=== PATIENT | female | born 1955 | race Caucasian/White ===

== ENCOUNTER 2017-03-24 14:43 | Emergency (ER) | payer SELFPAY ==
[~2017-03-24] VITALS: Ht 172.7 cm; Wt 67.1 kg
[2017-03-24] MEDS ORDERED: HALOPERIDOL LACTATE INJ 5 MG/ML VIAL ONE (14:44)
[2017-03-24] MEDS ORDERED: diphenhydrAMINE HCL 50 MG/ML VIAL ONE (14:44)
[2017-03-24] MEDS ORDERED: LORAZEPAM INJ 2 MG/ML VIAL ONE (14:44)
--- NOTE | 2017-03-24 14:55 | NUR ---
PT BIB [facility] C/O BIZARRE BEHAVIOR, SCREAMING OBSCENITIES, SPITTING. UNCOOPERATIVE WITH STAFF INSTRUCTIONS. RESP EVEN UNLABORED. PLACED ON 4 POINT RESTRAINTS FOR PT AND STAFF SAFETY. IN ER BED 15 ON MONITOR.
[2017-03-24] MEDS: diphenhydrAMINE HCL 50 MG/ML VIAL IM ONE (14:58)
[2017-03-24] MEDS: LORAZEPAM INJ 2 MG/ML VIAL IM ONE (15:02)
[2017-03-24] MEDS: HALOPERIDOL LACTATE INJ 5 MG/ML VIAL IM ONE (15:02)
[2017-03-24 15:07] LABS: BASOPHILS % (AUTO) 0.7 % (0.0-2.0); EOSINOPHILS % (AUTO) 0.6 % (0.0-6.0); HEMATOCRIT 40 % (33-45); HEMOGLOBIN 13.5 g/dL (11.5-14.8); LYMPHOCYTES # (AUTO) 2.6 /CMM (0.8-4.8); LYMPHOCYTES % (AUTO) 36.7 % (20.0-44.0); MEAN CORPUSCULAR HEMOGLOBIN 29 PG (26.0-33.0); MEAN CORPUSCULAR HGB CONC 34 g/dl (31.0-36.0); MEAN CORPUSCULAR VOLUME 84 fL (82-100); MONOCYTES # (AUTO) 0.4 /CMM (0.1-1.30); MONOCYTES % (AUTO) 5.1 % (2.0-12.0); NEUTROPHILS # (AUTO) 4.1 /CMM (1.8-8.9); NEUTROPHILS % (AUTO) 56.9 % (43.0-81.0); PLATELET COUNT (AUTO) 259 /CMM (150-450); RDW COEFFICIENT OF VARIATION 12.6 (11.5-15.0); WHITE BLOOD COUNT (AUTO) 7.1 K/uL (4.3-11.0)
[2017-03-24 15:22] LABS: CALCIUM, SERUM 8.1 mg/dL (8.5-10.1); CREATININE 0.7 mg/dL (0.6-1.3); POTASSIUM 3.9 mmol/L (3.5-5.1)
[2017-03-24 15:27] LABS: ALBUMIN 3.6 g/dL (3.4-5.0); BILIRUBIN,DIRECT 0.1 mg/dL (0.0-0.2); BILIRUBIN,TOTAL 0.3 mg/dL (0.2-1.0); SALICYLATE 4.9 mg/dL (2.8-20.0); TOTAL PROTEIN, SERUM 6.9 g/dL (6.4-8.2)
--- NOTE | 2017-03-24 16:00 | NUR ---
ALSEEP, EASILY AROUSABLE TO TOUCH. NAD NOTED.
--- NOTE | 2017-03-24 19:10 | NUR ---
PT AMBULATED WIT HSTEADY GAIT. REPORTS HER NAME IS AMELIA BARTHOLOMEW. ADMITTING NOTIFIED TO RECONCILE CHART. MD NOTIFIED. DENIES SI/HI. VERBALIZES A PLAN TO GO TO AN AA MEETING TONIGHT AND A DESTINATION UPON DISCHARGE. NAD NOTED. DISCHARGED IN STABLE CONDITION WITH VERBAL UNDERSTNADING OF DISCHARGE INSTRUCTIONS.
[2017-03-24 19:30] VITALS: BP 135/87
== END 2017-03-24 19:30 | disposition home or self-care (01) ==
LOC: ER 14:47
DX: F29 Unspecified psychosis not due to a substance or known physiological condition (principal); R45.1 Restlessness and agitation; F10.129 Alcohol abuse with intoxication, unspecified
CPT/HCPCS: 36415; 80048-TC; 80076-TC; 85025-TC; A4606; G0480; J1200; J1630; J2060; Z7610